=== PATIENT | female | born 1955 | race Caucasian/White ===

== ENCOUNTER 2019-06-18 05:58 | Emergency (ER) | payer OTHER ==
[~2019-06-18] VITALS: Ht 157.5 cm; Wt 50.3 kg
[2019-06-18 06:06] VITALS: Ht 157.5 cm; Wt 50.3 kg
[2019-06-18 06:43] VITALS: BP 136/73
== END 2019-06-18 06:43 | disposition home or self-care (01) ==
LOC: ED 05:58
DX: T63.441A Toxic effect of venom of bees, accidental (unintentional), initial encounter (principal); Y92.89 Other specified places as the place of occurrence of the external cause